=== PATIENT | male | born 1980 | race Caucasian/White ===

== ENCOUNTER → 2021-07-04 | Outpatient (CLI) | payer MEDICARE, OTHER ==
[~2021-07-04] MED LIST: CEPHALEXIN500 MG PO; HYDROCHLOROTHIA25 MG PO; IBU800 MG PO; IBUPROFEN800 MG PO; KEFLEX CAP 500500 MG PO; NORCO 7.5-3251 EACH PO; PERCOCET 10-321 EACH PO; PERCOCET 5/325 T1 EA PO; PHENERGAN 25 MG25 M1 PO; PREDNISONE 10 M10 MG PO; VITAMIN C 500500 MG PO; VITAMIN D250000 UNIT PO; ZANTAC150 MG PO; ZESTRIL40 MG PO
== END ==
LOC: KOH-I 09:10
DX: M79.672 Pain in left foot (principal); M25.572 Pain in left ankle and joints of left foot
CPT/HCPCS: 73610; 73630